=== PATIENT | female | born 1980 | race Caucasian/White ===

== ENCOUNTER 2016-06-08 14:44 | Inpatient (IN) | payer BC, OTHER ==
[~2016-06-08] VITALS: Ht 154.9 cm; Wt 56.7 kg
[2016-06-12] MEDS ORDERED: ACETAMINOPHEN 325 MG TABLET PO PRN (15:15)
[2016-06-12] MEDS ORDERED: LORAZEPAM 2 MG/1 ML VIAL IM PRN (15:15)
[2016-06-12] MEDS ORDERED: IV D5 1/2 NS 1000 ML 1,000 ML IV PRN (15:15)
[2016-06-12] MEDS ORDERED: ONDANSETRON ODT 4 MG TAB.RAPDIS SL PRN (15:15)
[2016-06-12] MEDS ORDERED: BUPRENORPHINE HCL 2 MG TAB.SUBL SL PRN (15:15)
[2016-06-12] MEDS ORDERED: DICYCLOMINE HCL 20 MG TABLET PO PRN (15:15)
[2016-06-12] MEDS ORDERED: MAG HYDROX/AL HYDROX/SIMETH 30 ML LIQUID UDC PO PRN (15:15)
[2016-06-12] MEDS ORDERED: DIAZEPAM 10 MG TABLET PO PRN (15:15)
[2016-06-12] MEDS ORDERED: MAGNESIUM HYDROXIDE 30 ML LIQUID UDC PO PRN (15:15)
[2016-06-12] MEDS ORDERED: DIAZEPAM 5 MG TABLET PO PRN (15:15)
[2016-06-12] MEDS ORDERED: LOPERAMIDE HCL 2 MG CAPSULE PO PRN ×2 (15:15)
--- NOTE | 2016-06-12 15:30 | NUR ---
Admission note Pt was admitted direct admit from home. Pt is admitted for opiate and benzo dependence. Pt placed on a regular diet. Pt is full code. Pt states that she has an allergy to lyrica, states that it makes her have SI and her hands swell. Pt was immediately placed on a 1:1 sitter for safety d/t unsteady gait d/t intoxication and dehydration/weakness. Pt states that she follows a regular diet at home, but that she is very picky about what she eats. Pt VS upon admission were: BP 114/55, HR 58, T:97.8 R: 16. SpO2: 98% on RA. Pt states that she has pain 09/26. Weight: 125 pounds, height: 5'1'' Pt states that she has a PMH of: fibromylagia, epilepsy, panic d/o, bipolar d/o, dissociative identity d/o, ADHD, insomnie and seasonal allergies. Pt states that she has fallen multiple times, and that last being last night. Pt has multiple small bruises on her arms and legs from the falls. Pt states that she had a seizure and fell last night and hit her head, pt states that she had a CT scan done and it was WNL. Pt was able to provide a UDS. All meds were entered into the med rec, Dr Hinkle is aware of her home medications. Pt states that she has not taken her anti-seizure meds in 6 months. Pt uses the following substances, was unable to provide a full clear history d/t her level of intoxication. Xanax- 4mg PO daily x 1 year, has been using xanax since the age of 14. last was 2mg PO 06/12/16 prior to admission. Soma- unknown tab amount, PO TID x 2 years, last 06/12/16 prior to admission Fentanyl patch- 50mcg patch was removed prior to admission, pt replaces Q72H,used for unknown amount of time. Diluadid- 8-16mg PO daily x unknown amount of time, last used 06/12/16. Pt states that she takes marinol to increase her appetite. Dr Hinkle saw pt and ordered IVF. Pt requested to go and smoke several times prior to allowing nurse to complete assessment, causing some delay in treatments. Dr Hinkle ordered for pt to start on 5 day subutex and 5 day valium taper on 08/13/16. Pt states that her PCP is Dr Maurice Kee and that she sees him regularly for the management of her health conditions. pt consented to the flu/pna vaccine. Pt states that she has recently been tested for HIV.
[2016-06-12 15:38] LABS: *URINE HCG, QUAL NEGATIVE (NEGATIVE)
[2016-06-12] MEDS ORDERED: TOPI200T16 PO (15:42)
[2016-06-12] MEDS ORDERED: [UNRECOGNIZED DRUG - OTHER] (15:42)
[2016-06-12] MEDS ORDERED: FLUV100C2 PO ×2 (15:42)
[2016-06-12] MEDS ORDERED: PROC5TAB PO (15:42)
[2016-06-12] MEDS ORDERED: TRAZ-147 PO (15:42)
[2016-06-12] MEDS ORDERED: GABA-534 PO (15:42)
[2016-06-12] MEDS ORDERED: MONT10TA25 PO (15:42)
[2016-06-12] MEDS ORDERED: DULO60CA63 PO (15:42)
[2016-06-12 15:45] LABS: *AMPHETAMINE, URINE NEGATIVE (NEGATIVE); *BARBITURATE, URINE NEGATIVE (NEGATIVE); *CANNABINOID, URINE NEGATIVE (NEGATIVE); *COCCAINE, URINE NEGATIVE (NEGATIVE); *OPIATE, URINE POSITIVE (NEGATIVE); *PHENCYCLIDINE SCREEN,URINE NEGATIVE (NEGATIVE)
[2016-06-12 16:00] VITALS: BP 125/74
[2016-06-12 16:43] LABS: HEMATOCRIT 39.5 % (37.0-47.0); HEMOGLOBIN 12.9 g/dL (12.0-16.0); MEAN CORPUSCULAR HEMOGLOBIN 29.8 uug (27.0-31.0); MEAN CORPUSCULAR HGB CONC 33 g/dL (32.0-37.0); MEAN CORPUSCULAR VOLUME 91.3 fL (81.0-99.0); PLATELET COUNT (AUTO) 179 K/uL (150-450); RED BLOOD CELL COUNT(AUTO) 4.32 MIL/uL (4.20-5.40); RED CELL DISTRIBUTION WIDTH 12.4 % (11.5-14.5); WHITE BLOOD COUNT (AUTO) 5.4 K/uL (4.0-11.2)
[2016-06-12 16:47] LABS: ETHANOL < 3 MG/DL (0-0)
[2016-06-12 16:51] LABS: ALANINE AMINOTRANSFERASE 20 U/L (14-59); ALBUMIN 3.8 g/dL (3.4-5.0); ALKALINE PHOSPHATASE 89 U/L (50-136); ASPARTATE AMINOTRANSFERASE 23 U/L (15-37); BILIRUBIN,TOTAL 0.3 mg/dL (0.2-1.0); CARBON DIOXIDE 31 mmol/L (21-32); CHLORIDE 101 mmol/L (98-107); CREATININE 0.8 mg/dL (0.6-1.3); GFR 82 mL/min (>60); GLUCOSE 107 mg/dL (74-106); MAGNESIUM 1.8 mg/dL (1.8-2.4); POTASSIUM 3.9 mmol/L (3.5-5.1); SODIUM SERUM 137 mmol/L (136-145); TOTAL PROTEIN, SERUM 6.9 g/dL (6.4-8.2); UREA NITROGEN, BLOOD 10 mg/dL (7-18)
[2016-06-12 16:58] LABS: HIV-1 p24 ANTIGEN NON REACTIVE (NONREACTIVE); HIV-1/2 ANTIBODY NON REACTIVE (NONREACTIVE)
[2016-06-12 17:12] LABS: THYROID STIMULATING HORMONE 1.624 mIU/mL (0.358-3.740)
--- NOTE | 2016-06-12 17:50 | NUR ---
IV insertion Pt is a very hard stick, IV placed by ER nurse in left leg, 22G. 3 attempts prior, pt tolerated well. Addendum: 06/12/16 at 2017 by MADDY FIGUEROA RN Pt requested to go smoke prior to administration of IVF
[2016-06-12 18:20] LABS: BAND % (MANUAL) 1 % (0-10); EOSINOPHILS % (MANUAL) 8 % (0-8); LYMPHOCYTES % (MANUAL) 39 % (20-40); MONOCYTES % (MANUAL) 6 % (2-10); NEUTROPHILS % (MANUAL) 46 % (42-75)
[2016-06-12 18:21] LABS: PLATELET ESTIMATE ADEQUATE
[2016-06-12] MEDS: DIAZEPAM 10 MG TABLET PO PRN (18:23)
[2016-06-12] MEDS: ONDANSETRON 4 MG/2 ML VIAL IV PRN (18:24)
[2016-06-12] MEDS: KETOROLAC TROMETHAMINE 30 MG INJ IM PRN (18:25)
--- NOTE | 2016-06-12 18:25 | NUR ---
PRN administration Pt c/o nausea, pain and has a CIWA of 15. PRN valium, toradol and zofran administered. IVF infused.
--- NOTE | 2016-06-12 19:15 | NUR ---
START OF SHIFT Received 35 year old female patient admitted on 06/12/16 benzodiazepine, opiate and soma dependency. Pt is full code with allergy to lyrica. She reports a PMHx of fibromyalgia, epilepsy, panic disorder, bipolar disorder, dissociative identity disorder, insomnia, ADHD, and seasonal allergies. She reports using Xanax 4 mg PO daily x1 year. Last dose was 06/12/16. Soma 350 mg every 4-6 hours daily for 10 years. Last dose 06/12/16. Fentanyl 50 mcg patch every 72 hours. And dilaudid 8-16 mg daily for 10 years. Last dose 06/12/16. She will be placed on 5 day Valium and 5 day Subutex taper to start 06/13/16. She is currently placed on 1:1 for unsteady gait and hx of seizure. Per endorsement, pt with peripheral IV fluids of D5 1/2 NS @ 120mL/hr on left lower leg 22 gauge. Intact and flushing well. No s/s of infection or infiltration noted. She received Zofran, Toradol, and Valium. Pt is alert and oriented x4, breathing is even and unlabored, safety measures in place. Will continue to monitor.
--- NOTE | 2016-06-12 19:25 | NUR ---
Reassessment Pt states that the medications were effective in relieving some of her s/s of withdrawal. Pt is requesting to rest at this time. director behavioral health to follow up with pt.
--- NOTE | 2016-06-12 19:30 | NUR ---
End of shift note Pt was admitted for opiate and benzo dependence. Pt has a PMH of fibromylagia, epilepsy, panic d/o, bipolar d/o, dissociative idenity d/o, ADHD, insomnia and seasonal allergies. Pt is allergic to lyrica. pt is full code. Pt is on a regular diet. Pt had PRN valium, zofran and toradol. IVF are infusing well. Pt continues on 1:1 for safety. All needs addressed at this time. Pt states that she is comfortable. SBAR report endorsed to oncoming shift. pt is scheduled to start 5 day subutex and 5 day valium taper on 06/13/16.
[2016-06-12 20:00] VITALS: BP 112/56
[2016-06-12] MEDS ORDERED: TRAZODONE 100 MG TABLET ONE (20:47)
[2016-06-12] MEDS ORDERED: DIAZEPAM 10 MG TABLET PO SCH (21:00)
[2016-06-12] MEDS: TRAZODONE 100 MG TABLET PO SCH (21:07)
[2016-06-12] MEDS: GABAPENTIN 300 MG CAPSULE PO SCH (21:07)
[2016-06-12] MEDS: PROMETHAZINE HCL 25 MG/1 ML VIAL IM PRN (21:40)
--- NOTE | 2016-06-12 21:40 | NUR ---
PRN PHENERGAN Pt complains of nausea with no episode of vomiting. PRN Phenergan administered as ordered. Breathing even and unlabored, safety measures in place. Will continue to monitor effectiveness.
--- NOTE | 2016-06-12 22:40 | NUR ---
PRN PHENERGAN REASSESSMENT PRN medication effective. Pt lying in bed with eyes closed noted to be asleep. Respirations 16, breathing even and unlabored. Safety measures in place. Will continue to monitor.
--- NOTE | 2016-06-13 | NUR ---
VITALS 0000 vitals refused by pt at beginning of shift. Pt stated, " please don't wake me up if I'm sleeping. I haven't been sleeping well." Pt lying in bed with eyes closed noted to be asleep. Respirations 16, breathing is even and unlabored. Safety measures in place. Will continue to monitor. Addendum: 06/13/16 at 0124 by ROSALIE ARCE RN Amended: Links added.
--- NOTE | 2016-06-13 04:00 | NUR ---
VITALS 0400 vitals refused by pt at beginning of shift. Pt stated, " please don't wake me up if I'm sleeping. I haven't been sleeping well." Pt lying in bed with eyes closed noted to be asleep. Respirations 16, breathing is even and unlabored. Safety measures in place. Will continue to monitor.
[2016-06-13] MEDS: KETOROLAC TROMETHAMINE 30 MG INJ IM PRN ×2 (05:16→13:04)
--- NOTE | 2016-06-13 05:16 | NUR ---
PRN TORADOL Pt complains of generalized body aches 11/27. PRN Toradol IM administered as ordered. Breathing even and unlabored, safety measures in place. Will continue to monitor.
[2016-06-13] MEDS: DIAZEPAM 10 MG TABLET PO PRN (05:33)
--- NOTE | 2016-06-13 05:33 | NUR ---
PRN BENTYL/VALIUM Pt reports abdominal spasms, anxiety, restlessness, chill and sweats. COWS: 7, CIWA:9. PRN Bentyl and PRN Valium administered as ordered. Breathing even and unlabored, safety measures in place. Will continue to monitor effectiveness.
--- NOTE | 2016-06-13 06:16 | NUR ---
PRN TORADOL REASSESSMENT PRN medication effective. Pt lying in bed with eyes closed noted to be asleep. Breathing even and unlabored, safety measures in place. Will continue to monitor.
--- NOTE | 2016-06-13 06:33 | NUR ---
PRN BENTYL/VALIUM REASSESSMENT PRN medications effective. Pt lying in bed with eyes closed noted to be asleep. Breathing even and unlabored, respirations 16. Pt safe with bed locked in lowest position, side rails up x2 and call light within reach. Will continue to monitor.
--- NOTE | 2016-06-13 07:23 | NUR ---
END OF SHIFT Pt is a 35 year old female patient admitted on 06/12/16 benzodiazepine, opiate and soma dependency. Pt is full code with allergy to lyrica. She reports a PMHx of fibromyalgia, epilepsy, panic disorder, bipolar disorder, dissociative identity disorder, insomnia, ADHD, and seasonal allergies. She will be placed on 5 day Valium and 5 day Subutex taper to start 06/13/16. She is currently placed on 1:1 for unsteady gait and hx of seizure. Pt with peripheral IV fluids of D5 1/2 NS @ 120mL/hr on left lower leg 22 gauge. Intact and flushing well. No s/s of infection or infiltration noted. She received PRN medications of phenerganToradol, Bentyl and Valium for CIWA:9. All PRN medications effective. She slept a total of 7 hrs, Intake: 1651 mL, Void: x2, BM:0, COWS:7, CIWA:9. Pt remains alert and oriented x4, breathing is even and unlabored, safety measures in place. Endorsed to AM Shift.
--- NOTE | 2016-06-13 07:45 | NUR ---
START OF SHIFT: REPORT RECEIVED FROM DIRECTOR OF HOUSING AND ENERGY SERVICES NURSE. PT IS A 35 YO FEMALE ADMITTED ON 06/12/16 FOR TAKING XANAX 4MG/DAY FOR 1 YEAR, SOMA UNKNOWN AMOUNT/TID FOR 2 YEARS, FENTANYL 50MCG PATCH Q72H, AND DILAUDID 8-16MG/DAY. PT IS TO START 5-DAY VALIUM AND SUBUTEX TAPERS TODAY. LAST DIRECTOR OF HOUSING AND ENERGY SERVICES COWS=7, CIWA=9. PT IS ON A 1:1 FOR UNSTEADY GAIT/SEIZURE. PT HAS A 22G IN LEFT LEG RUNNING D5 1/2NS AT 120 MLS/HR. PT REPORTS MED HX FIBROMYALGIA, EPILEPSY; PSYCH HX PANIC DO, BIPOLAR DO, DISSOCIATIVE IDENTITY DO, INSOMNIA. ALLERGY TO LYRICA, FULL CODE. . PT SLEPT 7 HOURS LAST NIGHT. PT IS CURRENTLY IN BED, NOTED TO BE LABILE, ANXIOUS, AGITATED, C/O GENERALIZED PAIN. ALL SAFETY PRECAUTIONS ARE IN PLACE.
[2016-06-13 08:00] VITALS: BP 86/38
[2016-06-13] MEDS: BUPRENORPHINE HCL 2 MG TAB.SUBL SL SCH ×4 (09:00→20:37)
[2016-06-13] MEDS: NICOTINE 14 MG/24HR PATCH TD SCH (09:00)
[2016-06-13] MEDS ORDERED: TUBERCULIN,PURIF.PROT.DERIV. 5 TU/0.1 ML TEST ID ONE (09:00)
--- NOTE | 2016-06-13 09:00 | NUR ---
NON-ADMIN: SUBUTEX AND NICOTINE PATCH SCHEDULED 09:00 DOSE OF SUBUTEX TAPER NOT ADMINISTERED D/T DECREASED BP OF 86/38. PT ENCOURAGED TO REMAIN ON IV FLUIDS. NICODERM PATCH NOT ADMINISTERED D/T PT'S REFUSAL TO NOT SMOKE WHILE TRANSDERMAL PATCH IS IN USE. VERBAL SMOKING CESSATION EDUCATION PROVIDED BUT PT CONTINUES TO REQUEST TO SMOKE. WILL CONTINUE TO MONITOR.
--- NOTE | 2016-06-13 09:00 | NUR ---
[facility] LATE: SCHEDULED 09:00 [facility] (HOME MED) ADMINISTERED LATE MEDICATION WAS NOT AVAILABLE FROM PHARMACY AT SCHEDULED TIME.
[2016-06-13] MEDS: GABAPENTIN 300 MG CAPSULE PO SCH ×3 (09:29→20:36)
[2016-06-13] MEDS: DIAZEPAM 10 MG TABLET PO SCH ×2 (09:29→13:05)
[2016-06-13] MEDS: MULTIVITAMINS,THERAPEUTIC TABLET PO SCH (09:29)
--- NOTE | 2016-06-13 09:31 | NUR ---
PPD ADMINISTERED: PPD ADMINISTERED IN RIGHT FOREARM. PT TOLERATED PROCEDURE WELL.
[2016-06-13 10:40] LABS: *AMPHETAMINE, URINE NEGATIVE (NEGATIVE); *BARBITURATE, URINE POSITIVE (NEGATIVE); *CANNABINOID, URINE NEGATIVE (NEGATIVE); *COCCAINE, URINE NEGATIVE (NEGATIVE); *OPIATE, URINE POSITIVE (NEGATIVE); *PHENCYCLIDINE SCREEN,URINE NEGATIVE (NEGATIVE)
[2016-06-13] MEDS: BACLOFEN 20 MG TABLET PO PRN (10:51)
[2016-06-13] MEDS: PROMETHAZINE HCL 25 MG/1 ML VIAL IM PRN ×2 (10:51→14:55)
--- NOTE | 2016-06-13 10:51 | NUR ---
PRN PHENERGAN AND PRN BACLOFEN: PT C/O SEVERE NAUSEA. ADMINISTERED PHENERGAN IM ORDERED. PT C/O MYALGIA. ADMINISTERED PRN BACLOFEN ORDERED. WILL CONTINUE TO MONITOR.
--- NOTE | 2016-06-13 11:55 | NUR ---
REASSESSMENT: PT IS IN BED WITH EYES CLOSED. RESPIRATIONS ARE EVEN AND UNLABORED. NO S/S OF ACUTE DISTRESS NOTED. PRN PHENERGAN AND PRN BACLOFEN EFFECTIVE. WILL CONTINUE TO MONITOR.
[2016-06-13 12:00] VITALS: BP 97/56
--- NOTE | 2016-06-13 13:00 | NUR ---
SUBUTEX LATE: SCHEDULED 13:00 TAPER DOSE OF SUBUTEX ADMINISTERED LATE PT'S BLOOD PRESSURE WAS TOO LOW. MD AWARE OF LOW BP, AND PT CONTINUES ON IV FLUIDS TO INCREASE BP.
--- NOTE | 2016-06-13 13:04 | NUR ---
PRN TORADOL: PT C/O SEVERE GENERALIZED PAIN; PT STATES "I HURT EVERYWHERE, IT EVEN HURTS TO MOVE." PT RATES PAIN 12/27. ADMINISTERED PRN TORADOL IM ORDERED. WILL CONTINUE TO MONITOR.
[2016-06-13] MEDS: PATIENT MAY USE OWN MED- MD OK PO SCH (13:05)
[2016-06-13] MEDS: ONDANSETRON 4 MG/2 ML VIAL IV PRN (13:58)
--- NOTE | 2016-06-13 13:58 | NUR ---
PRN ZOFRAN: PT C/O NAUSEA. ADMINISTERED ZOFRAN IV ORDERED. WILL CONTINUE TO MONITOR.
[2016-06-13] MEDS ORDERED: IV NORMAL SALINE 500 ML IV ONE (14:06)
--- NOTE | 2016-06-13 14:15 | NUR ---
REASSESSMENT: PT REPORTS THAT SHE IS STILL HAVING SEVERE PAIN. PT'S BLOOD PRESSURE TOO LOW FOR SUBUTEX ADMINISTRATION. PT TO CONTINUE TO IV FLUIDS TO INCREASE BP. WILL REASSESS BP Q 30 MIN FOR MEETING SUBUTEX BP PARAMETERS. Addendum: 06/13/16 at 1614 by DENISE KENDALL RN REASSESSMENT IS FOR MAIRA
[2016-06-13] MEDS: HYDROXYZINE PAMOATE 25 MG CAPSULE PO PRN (14:42)
--- NOTE | 2016-06-13 14:55 | NUR ---
REASSESSMENT AND PRN'S PHENERGAN AND VISTARIL: PT REPORTS THAT SHE IS STILL FEELING NAUSEOUS. PRN ZOFRAN NOT EFFECTIVE. ADMINISTERED PRN PHENERGAN IM ORDERED. PT C/O ANXIETY. ADMINISTERED PRN VISTARIL ORDERED. WILL CONTINUE TO MONITOR.
[2016-06-13] MEDS ORDERED: GABAPENTIN 300 MG CAPSULE PO SCH (15:00)
--- NOTE | 2016-06-13 15:55 | NUR ---
REASSESSMENT: PT REPORTS THAT SHE IS NO LONGER NAUSEOUS AND ANXIETY HAS REDUCED. PRN PHENERGAN AND PRN VISTARIL EFFECTIVE. WILL CONTINUE TO MONITOR.
[2016-06-13 16:00] VITALS: BP 90/51
[2016-06-13] MEDS: DIVALPROEX 250 MG TABLET.DR PO SCH ×2 (16:41→20:46)
[2016-06-13] MEDS: DULOXETINE 60 MG CAPSULE.DR PO SCH (16:41)
[2016-06-13] MEDS ORDERED: TRAZODONE 100 MG TABLET PO SCH ×2 (18:00)
--- NOTE | 2016-06-13 19:22 | NUR ---
END OF SHIFT NOTE: PT IS A 35 YO FEMALE ADMITTED ON 06/12/16 FOR TAKING XANAX 4MG/DAY FOR 1 YEAR, SOMA UNKNOWN AMOUNT/TID FOR 2 YEARS, FENTANYL 50MCG PATCH Q72H, AND DILAUDID 8-16MG/DAY. PT IS ON DAY 1 OF 5-DAY VALIUM AND SUBUTEX TAPERS. PT IS ON A 1:1 FOR UNSTEADY GAIT/SEIZURE. PT HAS A 22G IN LEFT LEG RUNNING D5 1/2NS AT 120 MLS/HR. 500ML NS BOLUS GIVEN THIS SHIFT TO INCREASE BP. PT REPORTS MED HX FIBROMYALGIA, EPILEPSY; PSYCH HX PANIC DO, BIPOLAR DO, DISSOCIATIVE IDENTITY DO, INSOMNIA. ALLERGY TO LYRICA, FULL CODE. 09:00 SCHEDULED DOSE OF SUBUTEX UNABLE TO BE ADMINISTERED D/T BP 86/38: PRN MEDICATIONS ATTEMPTED TO MANAGE WITHDRAWAL SYMPTOMS (PRN PHENERGAN X2, PRN TORADOL, PRN BACLOFEN, PRN VISTARIL, PRN ZOFRAN) BUT COWS (9, 13) AND CIWA (10, 11) SCORES REMAINED ELEVATED UNTIL BP WAS HIGH ENOUGH FOR SUBUTEX ADMINISTRATION AT 14:50, WHEN COWS DECREASED TO 3, CIWA=2. PPD WAS ADMINISTERED THIS SHIFT IN RIGHT FOREARM. PT ALSO REFUSED NICOTINE TD PATCH. PRIOR TO HANDOFF, LAST COWS=3, CIWA=2. PT CONSUMED 0% BREAKFAST, 25% LUNCH, AND 0% DINNER. INTAKE 375ML ORAL AND 500ML IV, URINE X2, BM X0.
--- NOTE | 2016-06-13 19:35 | NUR ---
START OF SHIFT NOTE Pt is 35 y o female, admitted on 06/12/16 for Xanax (4 mg daily for 1 yr), soma (unknown amount daily for 2 yrs), fentanyl (50 mcg before admission), and dilaudid (8-16 mg daily). Pt placed on 5 day Valium, 5 day Subutex taper started 06/13/16. Pt asleep, awakened by touch. Pt oriented to name, place, disoriented to date by 3 days, provided reorientation. Pt noted with moderate sweating, reports chills, body aches 6/10, stomach cramps, anxiety. No tremors noted. AURY 107/60, HR 68. Skin intact. PIV 22 g to left leg, site intact, patent, without edema or erythema; infusing D5 1/2NS at 120 ml/hr. Lung sounds clear, heart rate regular. Pt denies n/v, bowel sounds active x 4. Pt denied urinary difficulties. PMH of fibromyalgia, epilepsy, panic disorder, bipolar, dissociative identity, ADH, insomnia, allergies. Pt allergic to Lyrica. Full code, regular diet. Fall and seizure precautions in place. Pt has unsteady gait, is o 1:1 observation for safety. Pt is on fall and seizure precautions. CAll light within reach, side rails up x 2, bed locked in lowest position. Will continue with plan of care
[2016-06-13 20:00] VITALS: BP 107/60
[2016-06-13] MEDS: TRAZODONE 100 MG TABLET PO SCH (20:36)
[2016-06-13] MEDS: IV D5 1/2 NS 1000 ML 1,000 ML IV PRN (20:44)
[2016-06-13] MEDS ORDERED: DIAZEPAM 10 MG TABLET PO SCH (21:00)
[2016-06-14] VITALS: BP 89/48
[2016-06-14] MEDS: IBUPROFEN 600 MG TABLET PO PRN (02:16)
[2016-06-14] MEDS: BACLOFEN 20 MG TABLET PO PRN ×2 (02:16→10:18)
[2016-06-14] MEDS: diphenhydrAMINE 50 MG CAPSULE PO PRN (02:18)
--- NOTE | 2016-06-14 02:18 | NUR ---
PRN MEDICATION: BACLOFEN, MOTRIN, BENADRYL Pt awakened, c/o body aches 6/10, spasms. Administered Baclofen and Motrin. Pt reported insomnia, given Benadryl prn as ordered. Safety measures in place, will continue to monitor
--- NOTE | 2016-06-14 03:18 | NUR ---
REASSESSMENT Pt sleeping soundly, RR unlabored. Will cont to monitor
[2016-06-14 04:00] VITALS: BP 87/53
[2016-06-14] MEDS: PROMETHAZINE HCL 25 MG/1 ML VIAL IM PRN ×2 (06:01→18:00)
[2016-06-14] MEDS: KETOROLAC TROMETHAMINE 30 MG INJ IM PRN ×2 (06:13→18:00)
--- NOTE | 2016-06-14 06:15 | NUR ---
PRN TORADOL AND PHENERGAN Pt awake, c/o body ache 9/10 and nausea. Administered prn Phenergan an prn Toradol as order
--- NOTE | 2016-06-14 07:15 | NUR ---
MADHU ROYAL Pt observed in room on bed with eyes closed resting, but easily arousable to name. No distress noted at this time.
--- NOTE | 2016-06-14 07:46 | NUR ---
START OF SHIFT Pt 35 y/o female admitted for benzo and opiate dependence. Pt received in room on bed with eyes closed resting, but easily arousable to name. Pt alert and oriented to name, place, and time. Perrla. Skin warm and slightly moist to touch. Respirations even and unlabored. Peripheral IV 22g on left leg intact and in place, with no redness or infiltration noted and infusing D5 1/2NS @120mL / hr and is tolerating well. Pt with sitter 1:1 for safety. It was reported that pt slept for 8 hours last night. Bed on lowest position with side rails x2 up for safety. Call light within reach. No distress noted at this time.
--- NOTE | 2016-06-14 07:53 | NUR ---
END OF SHIFT NOTE Pt is 35 y o female, admitted on 06/12/16 for Xanax (4 mg daily for 1 yr), soma (unknown amount daily for 2 yrs), fentanyl (50 mcg before admission), and dilaudid (8-16 mg daily). Pt is on day 2 of 5 day Valium, 5 day Subutex taper started 06/13/16. Pt had withdrawal s/s of body aches, chills, sweats, yawning, anxiety, nausea, stomach cramps. Pt was administered al scheduled taper medications. COWS scores ranged from 7 to 4, last COWS = 4; CIWA ranged 6 to 2, last CIWA =2. Noted pt had BP trending SBP 87-107, DBP 48-60. Pt received prn medications as documented in separate entries. Prns were effective for discomfort s/s. Currently pt is asleep with eyes closed, RR unlabored IV to L leg intact and patent, without swelling or redness, infusing D5 1/2 NS. 1:1 sitter at bedsite. PMH of fibromyalgia, epilepsy, panic disorder, bipolar, dissociative identity, ADH, insomnia, allergies. Pt allergic to Lyrica. Full code, regular diet. Fall and seizure precautions in place. Pt has unsteady gait, is o 1:1 observation for safety. Report endorsed to day shift
[2016-06-14 08:00] VITALS: BP 106/62
[2016-06-14] MEDS: IV D5 1/2 NS 1000 ML 1,000 ML IV PRN (08:11)
[2016-06-14] MEDS: NICOTINE 14 MG/24HR PATCH TD SCH (09:00)
[2016-06-14] MEDS ORDERED: DIAZEPAM 10 MG TABLET PO SCH (09:00)
[2016-06-14] MEDS: DIAZEPAM 5 MG TABLET PO SCH ×4 (09:59→20:14)
[2016-06-14] MEDS: BUPRENORPHINE HCL 2 MG TAB.SUBL SL SCH ×3 (10:00→20:20)
[2016-06-14] MEDS: GABAPENTIN 300 MG CAPSULE PO SCH ×3 (10:01→20:13)
[2016-06-14] MEDS: MULTIVITAMINS,THERAPEUTIC TABLET PO SCH (10:01)
[2016-06-14] MEDS: DULOXETINE 60 MG CAPSULE.DR PO SCH (10:01)
[2016-06-14] MEDS: DIVALPROEX 250 MG TABLET.DR PO SCH ×2 (10:18→20:14)
[2016-06-14] MEDS: PATIENT MAY USE OWN MED- MD OK PO SCH (10:18)
[2016-06-14] MEDS: IV NS 1000 ML 1,000 ML IV SCH (10:19)
[2016-06-14] MEDS ORDERED: KETOROLAC TROMETHAMINE 30 MG INJ IM ONE (10:30)
[2016-06-14] MEDS: MIRALAX 17 GM POWD.PACK PO PRN (10:51)
--- NOTE | 2016-06-14 10:51 | NUR ---
PRN Pt with c/o constipation. Miralax oral prn per MD order offered, at first accepted, but after it was made, pt refused.
[2016-06-14 12:00] VITALS: BP 102/61
[2016-06-14] MEDS: LIDOCAINE 5% PATCH TD SCH (13:38)
[2016-06-14 14:12] LABS: HCV AB <0.1 s/co ratio (0.0-0.9); HEPATITIS B CORE AB, IgM Negative (Negative); HEPATITIS B SURFACE AG Negative (Negative)
[2016-06-14] MEDS: DICYCLOMINE HCL 20 MG TABLET PO SCH ×2 (15:36→20:13)
[2016-06-14] MEDS: BACLOFEN 20 MG TABLET PO SCH ×2 (15:36→20:13)
[2016-06-14] MEDS: HYDROXYZINE PAMOATE 25 MG CAPSULE PO PRN (15:39)
--- NOTE | 2016-06-14 15:39 | NUR ---
PRN Pt stated feels anxious and restless. Vistaril po prn per MD order given and tolerated well.
[2016-06-14 16:00] VITALS: BP 109/54
--- NOTE | 2016-06-14 16:39 | NUR ---
PRN jarredal Pt observed in bed with eyes closed resting, but easily arousable to name. No distress noted at this time.
--- NOTE | 2016-06-14 17:45 | NUR ---
IV 500 of 1000mL of NS left in bag. Notified pharmacy.
--- NOTE | 2016-06-14 19:17 | NUR ---
END OF SHIFT Pt 35 y/o female admitted for benzo and opiate dependence. Pt alert and oriented to name, place, and time. Perrla. Skin warm and slightly moist to touch. Respirations even and unlabored. Peripheral IV 22g on left leg intact and in place, with no redness or infiltration noted and infusing NS @125mL / hr and is tolerating well. Pt with sitter 1:1 for safety. Pt medication compliant and tolerated well. No ASe noted at this time. Bed on lowest position with side rails x2 up for safety. Call light within reach. No distress noted at this time.
[2016-06-14 20:00] VITALS: BP 129/67
--- NOTE | 2016-06-14 20:00 | NUR ---
Start of Shift Pt is a 35 year old female admitted on 06/12/2016 for Benzo/Opiate dependence, placed on 5 day Valium and 5 day Subutex taper. Pt is allergic to pregabalin, fall/seizure precautions, regular diet and full code. Pt is on 1:1 observation d/t unsteady gait - safety. PMH: Fibromyalgia, epilepsy, panic d/o, bipolar d/o, dissociative identity d/o, ADH, insomnia and allergies (seasonal). Peripheral IV 22g on left leg intact and in place, no redness or infiltration noted and infusing NS @125mL / hr, pt tolerating well. Upon assessment, pt reports anxiety, noted with moderate sweaty, reports chills/body/joint aches. respirations even and unlabored, denies SOB/chest pain, skin sweaty/clammy, bowel sounds active x4, abdomen soft. BP 129/67, pulse 83, respirations 16 , SpO2 99%, temp 97.5. Will administered scheduled medications. Safety measures in place, call light within reach, side rails up x2, bed locked and in low position. Will continue to monitor.
[2016-06-14] MEDS: TRAZODONE 100 MG TABLET PO SCH (20:14)
[2016-06-15] VITALS: BP 134/79
--- NOTE | 2016-06-15 | NUR ---
Vital Signs BP 134/79, pulse 67, respirations 16, SpO2 97%, temp 97.9, CIWA/COWS deferred d/t pt sleeping, to asses while awake as ordered. Respirations even and unlabored, no s/s of distress noted. Safety measures in place, call light within reach, side rails up x2, bed locked and in low position. Will continue to monitor.
[2016-06-15] MEDS: KETOROLAC TROMETHAMINE 30 MG INJ IM PRN ×4 (00:47→22:51)
--- NOTE | 2016-06-15 00:47 | NUR ---
PRN Administration Upon awakening, pt reported pain 10/10 in right leg, requested relief. Pt also reported anxiety. Toradol Inj 30ml/1ml PRN administered, tolerated well. Vistaril 50mg PRN administered. Safety measures in place, sitter at bed side, call light within reach, side rails up x2, bed locked and in low position. Will continue to monitor.
[2016-06-15] MEDS: HYDROXYZINE PAMOATE 25 MG CAPSULE PO PRN ×2 (01:03→11:59)
[2016-06-15] MEDS: IV NS 1000 ML 1,000 ML IV SCH ×3 (01:16→21:40)
--- NOTE | 2016-06-15 01:16 | NUR ---
IVF New bag of NS started - Infusing NS @125mL / hr. Peripheral IV 22g on left leg intact and in place, no redness or infiltration noted. Safety measures in place, will continue to monitor.
[2016-06-15] MEDS: PROMETHAZINE HCL 25 MG/1 ML VIAL IM PRN ×3 (02:25→16:06)
--- NOTE | 2016-06-15 02:25 | NUR ---
PRN Reassessment/PRN Administration Pt reports pain is subsiding rated 3-4/10. Pt reported nausea, requested relief. Phenergan 25mg/1ml PRN administered. Safety measures in place, sitter at bed side, call light within reach, side rails up x2, bed locked and in low position. Will continue to monitor.
--- NOTE | 2016-06-15 03:25 | NUR ---
PRN Reassessment Pt reports feeling no longer nauseated, Phenergan 25mg/1mg effective. Needs met. Safety measures in place, Will continue to monitor.
[2016-06-15] MEDS: CLONIDINE HCL 0.1 MG TABLET PO PRN ×3 (03:59→23:51)
[2016-06-15 04:00] VITALS: BP 133/69
--- NOTE | 2016-06-15 04:00 | NUR ---
Vital Signs/PRN Administration BP 133/69, pulse 90, respirations 17, Spo2 98%, temp 98. Pt is emotional, is crying, stated, "I am very anxious, I just can't sleep because I keep thinking about everything!" Clonidine 0.1mg PRN administered. Safety measures in place, sitter at bedside, call light within reach, side rails up x2, bed locked and in low position. Will continue to monitor.
--- NOTE | 2016-06-15 05:00 | NUR ---
PRN Reassessment Upon reassessment of Clonidine 0.1mg PRN, pt is sleeping, no s/s of distress noted, respirations even and unlabored, medication effective. Safety measures in place, sitter at bedside, side rails up x2, bed locked and in low position. Will continue to monitor.
--- NOTE | 2016-06-15 07:00 | NUR ---
End of Shift Pt is a 35 year old female admitted on 06/12/2016 for Benzo/Opiate dependence, placed on 5 day Valium and 5 day Subutex taper. Pt is allergic to pregabalin, fall/seizure precuations, regular diet and full code. Pt is on 1:1 observation d/t unsteady gait - safety. PMH: Fibromyalgia, epilepsy, panic d/o, bipolar d/o, dissociative identity d/o, ADH, insomnia and allergies (seasonal). During shift pt presented with fatigue, chills/aches over body and joints, skin noted with moderate sweat, gait remains unsteady. Scheduled taper medications administered, COWS 5 and CIWA 4. At 0047, pt reported anxiety and 10/10 pain in right leg, Toradol 30mg/1ml injection PRN and Vistaril 50mg PRN administered. Peripheral IV 22g on left leg intact and in place, no redness or infiltration noted and infusing NS @125mL / hr, pt tolerating well - new bag hung at 0116. At 0225, Phenergan 25mg/1ml administered d/t nausea, effective as reported per pt. Clonidine 0.1mg PRN administered d/t pt reports of anxiety, as mentioned in separate note. VS stable, Pt slept for 4 hours, intake of 810 ml PO and voids x2. Safety measures in place, call light within reach, side rails up x2, bed locked and in low position. Endorsed to day shift nurse.
[2016-06-15 08:00] VITALS: BP 120/64
--- NOTE | 2016-06-15 08:00 | NUR ---
START OF SHIFT Pt 35 y/o female admitted for benzo and opiate dependence. Pt received in room on bed with eyes closed resting, but easily arousable to name. Pt alert and oriented to name, place, and time. Perrla. Skin warm and slightly moist to touch. Respirations even and unlabored. Peripheral IV 22g on left leg intact and in place, with no redness or infiltration noted and infusing NS @125mL / hr and is tolerating well. Pt with sitter 1:1 for safety. Pt observed irritable this morning, raising voice, at times yelling at staff. It was reported that pt slept for 4 hours last night. Bed on lowest position with side rails x2 up for safety. Call light within reach. No distress noted at this time.
[2016-06-15] MEDS: DICYCLOMINE HCL 20 MG TABLET PO SCH ×3 (08:20→21:38)
[2016-06-15] MEDS: DIAZEPAM 5 MG TABLET PO SCH ×3 (08:20→21:39)
[2016-06-15] MEDS: BACLOFEN 20 MG TABLET PO SCH ×3 (08:20→21:38)
[2016-06-15] MEDS: GABAPENTIN 300 MG CAPSULE PO SCH ×2 (08:20→15:49)
[2016-06-15] MEDS: MULTIVITAMINS,THERAPEUTIC TABLET PO SCH (08:20)
[2016-06-15] MEDS: DULOXETINE 60 MG CAPSULE.DR PO SCH (08:20)
[2016-06-15] MEDS: PATIENT MAY USE OWN MED- MD OK PO SCH (08:20)
[2016-06-15] MEDS: DIVALPROEX 250 MG TABLET.DR PO SCH ×2 (08:21→21:39)
--- NOTE | 2016-06-15 08:21 | NUR ---
PRN Pt stated she feels nauseated. Phenargam im prn per MD order given and tolerated well.
[2016-06-15] MEDS: LIDOCAINE 5% PATCH TD SCH (08:29)
--- NOTE | 2016-06-15 08:29 | NUR ---
PRN Pt with c/o generalized pain 6/10 aching. Toradol im prn per MD order given and tolerated well.
--- NOTE | 2016-06-15 08:30 | NUR ---
IV Pt requested to have IV fluids disconnected to go out to the patio.
[2016-06-15] MEDS ORDERED: DIAZEPAM 5 MG TABLET PO SCH (09:00)
[2016-06-15] MEDS: NICOTINE 14 MG/24HR PATCH TD SCH (09:00)
[2016-06-15] MEDS ORDERED: BUPRENORPHINE HCL 2 MG TAB.SUBL SL SCH (09:00)
--- NOTE | 2016-06-15 09:21 | NUR ---
MADHU ROYAL Pt observed in dining room sitting watching television.
--- NOTE | 2016-06-15 09:29 | NUR ---
MADHU ROYAL Pt observed in dining room sitting watching television.
[2016-06-15 12:00] VITALS: BP 137/80
--- NOTE | 2016-06-15 12:06 | NUR ---
PRN Pt agitated and does not respond to limit setting. Hard to redirect. Pt yelling in room. Catapres po prn per MD order and vistaril po prn per MD order given and tolerated well. Pt refused to have IV continued at this time. Pt also refused to have PNA and influenza vaccine at this time.
--- NOTE | 2016-06-15 12:07 | NUR ---
IV Pt requested to have IV fluids disconnected to go to the patio.
--- NOTE | 2016-06-15 12:45 | NUR ---
IV NS still with 500mL of 1000mL left in bag.
[2016-06-15] MEDS ORDERED: INFLUENZA VACCINE 0.5 ML DISP.SYRIN IM ONE (13:00)
[2016-06-15] MEDS ORDERED: PNEUMOCOCCAL 23-VAL P-SAC VAC 0.5 ML VIAL IM ONE (13:00)
[2016-06-15] MEDS: BUPRENORPHINE HCL 2 MG TAB.SUBL SL SCH ×2 (15:50→21:39)
[2016-06-15 16:00] VITALS: BP 126/76
--- NOTE | 2016-06-15 16:06 | NUR ---
PRN Pt with c/o nausea. Phenergan IM prn per MD order given and tolerated well.
--- NOTE | 2016-06-15 16:07 | NUR ---
IV Pt requested to have IV fluids disconnected because pt wants to go out to the patio.
--- NOTE | 2016-06-15 16:07 | NUR ---
PRN Pt with c/o pain aching generalized 11/27. Toradol IM prn per MD order given and tolerated well.
--- NOTE | 2016-06-15 17:06 | NUR ---
MADHU ROYAL Pt observed up on wheelchair in patio. No distress noted at this time.
--- NOTE | 2016-06-15 17:07 | NUR ---
MADHU ROYAL Pt observed up on wheelchair in patio. No distress noted at this time.
--- NOTE | 2016-06-15 18:27 | NUR ---
IV Pt requested to have IV fluids disconnected because pt wants to go out to the patio.
--- NOTE | 2016-06-15 18:37 | NUR ---
END OF SHIFT Pt 35 y/o female admitted for benzo and opiate dependence. Pt alert and oriented to name, place, and time. Perrla. Skin warm and slightly moist to touch. Respirations even and unlabored. Peripheral IV 22g on left leg intact and in place, with no redness or infiltration noted and infusing NS @125mL / hr and is tolerating well. Pt partially compliant with IV therapy, requesting to have the IV fluids disconnected multiple times throughout the day to go to the patio. Pt with sitter 1:1 for safety. Pt medication compliant and tolerated well. No ASe noted at this time. Bed on lowest position with side rails x2 up for safety. Call light within reach. No distress noted at this time.
[2016-06-15 20:00] VITALS: BP 134/66
--- NOTE | 2016-06-15 20:00 | NUR ---
Start of Shift Pt is a 35 year old female admitted on 06/12/2016 for Benzo/Opiate dependence, placed on 5 day Valium and 5 day Subutex taper. Pt is allergic to pregabalin, fall/seizure precautions, regular diet and full code. Pt is on 1:1 observation d/t unsteady gait - safety. PMH: Fibromyalgia, epilepsy, panic d/o, bipolar d/o, dissociative identity d/o, ADH, insomnia and allergies (seasonal). Peripheral IV 22g on left leg intact and in place, no redness or infiltration noted and infusing NS @125mL / hr, pt tolerating well. Upon assessment, pt reports anxiety, reports body/joint aches. respirations even and unlabored, denies SOB/chest pain, skin sweaty/clammy, bowel sounds active x4, abdomen soft. BP 134/66, pulse 66, respirations 16 , SpO2 100%, temp 98.2. Will administered scheduled medications. Safety measures in place, call light within reach, side rails up x2, bed locked and in low position. Will continue to monitor.
[2016-06-15] MEDS ORDERED: GABAPENTIN 300 MG CAPSULE PO SCH (21:00)
[2016-06-15] MEDS: TRAZODONE 100 MG TABLET PO SCH (21:38)
--- NOTE | 2016-06-15 22:51 | NUR ---
PRN Administration Pt reported body aches/pain rated 10/10, requested relief. Toradol Inj 30ml/1ml PRN administered, tolerated well. Safety measures in place, sitter at bed side, call light within reach, side rails up x2, bed locked and in low position. Will continue to monitor.
[2016-06-15] MEDS: ONDANSETRON 4 MG/2 ML VIAL IV PRN (23:51)
--- NOTE | 2016-06-15 23:51 | NUR ---
PRN Reassessment/Administration Pt is crying, in emotional distress, skin noted to be clammy, tremors noted, reports feelings of anxious. Pt also reports feeling nauseated, no emesis present. Clonidine 0.1mg PRN administered as ordered. Zofran 4mg/2ml PRN administered as ordered. Safety measures in place, sitter at bedside, call light within reach, side rails up x2, bed locked and in low position. Will continue to monitor.
[2016-06-16] VITALS: BP 123/67
--- NOTE | 2016-06-16 | NUR ---
Vital Signs BP 123/67, pulse 87, respirations 16, Spo2 98%, temp 98.3. COWS 4, CIWA [address], sitter at bedside, call light within reach, side rails up x2, bed locked and in low position. Will continue to monitor.
--- NOTE | 2016-06-16 00:51 | NUR ---
PRN Reassessment Pt is sleeping, no s/s of distress noted, respirations even and unlabored. Medication effective. Safety measures in place, call light within reach, side rails up x2, bed locked and in low position. Will continue to monitor
[2016-06-16 04:00] VITALS: BP 131/75
--- NOTE | 2016-06-16 04:00 | NUR ---
Vital Signs BP 131/75, pulse 65, respirations 18, SpO2 97%, temp 97.8, CIWA/COWS deferred d/t pt sleeping, to asses while awake as ordered. Respirations even and unlabored, no s/s of distress noted. Safety measures in place, call light within reach, side rails up x2, bed locked and in low position. Will continue to monitor.
[2016-06-16] MEDS: HYDROXYZINE PAMOATE 25 MG CAPSULE PO PRN ×2 (04:43→16:52)
--- NOTE | 2016-06-16 04:43 | NUR ---
PRN Administration Upon awakening, pt is emotional -crying, reports feeling anxious d/t having a "bad dream". Vistaril 50mg PRN administered. Safety measures in place, call light within reach, side rails up x2, bed locked and in low position. Will continue to monitor.
[2016-06-16] MEDS: IV NS 1000 ML 1,000 ML IV SCH ×3 (05:15→18:00)
--- NOTE | 2016-06-16 05:15 | NUR ---
IVF New bag of NS started at 0515. Infusing NS @125mL / hr. Peripheral IV 22g on left leg intact and in place, no redness or infiltration noted. Safety measures in place, will continue to monitor.
[2016-06-16] MEDS: KETOROLAC TROMETHAMINE 30 MG INJ IM PRN ×3 (05:27→18:37)
--- NOTE | 2016-06-16 05:27 | NUR ---
PRN Reassessment/PRN Administered. Pt reported Vistaril 50mg PRN not effective. Pt reports body aches rated 10/10. Pt is crying and states, "I am hurting all over!" Toradol 30mg/1ml PRN administered. Safety measures in place, sitter at bedside. Will continue to monitor.
--- NOTE | 2016-06-16 07:00 | NUR ---
End of Shift Pt is a 35 year old female admitted on 06/12/2016 for Benzo/Opiate dependence, placed on 5 day Valium and 5 day Subutex taper. Pt is allergic to pregabalin, fall/seizure precautions, regular diet and full code. Pt is on 1:1 observation d/t unsteady gait - safety. PMH: Fibromyalgia, epilepsy, panic d/o, bipolar d/o, dissociative identity d/o, ADH, insomnia and allergies (seasonal). Peripheral IV 22g on left leg intact and in place, no redness or infiltration noted and infusing NS @125mL / hr, pt tolerating well. During shift, pt presented of anxiety, pt was emotional crying and reported body aches rated 10/10. Scheduled taper medications administered, along with Toradol inj x2, clonidine 0.1mg PRN, Zofran 4mg/2mg IV, Vistaril 50mg PRN. 2 bags of NS @125ml/hr hung, first bag at 2140 and second bag at 0515. Withdrawal assessment of COWS 4, CIWA 4. pt slept for 4 hours, intake of 651 ml Po and voids x3. Safety measures in place, call light within reach, side rails up x2, bed locked and in low position. Endorsed to day shift nurse.
--- NOTE | 2016-06-16 07:15 | NUR ---
Start of shift note Pt was admitted for opiate and benzo dependence. Pt has a PMH of fibromylagia, epilepsy, panic d/o, bipolar d/o, dissociative idenity d/o, ADHD, insomnia and seasonal allergies. Pt is allergic to lyrica. pt is full code. Pt is on a regular diet. Pt is on a 1:1, sitter at bedside for safety. Pt IVF infusing at 125ml/hr. No signs of redness at IV site. Pt is sleeping well, stated she does not need anything at this time. Pt is on a subutex and valium taper for her w/d s/s. Pt had multiple PRN medications over night. Will continue to monitor pt. All needs addressed at this time.
[2016-06-16 08:00] VITALS: BP 126/66
[2016-06-16] MEDS: NICOTINE 14 MG/24HR PATCH TD SCH (09:00)
[2016-06-16] MEDS ORDERED: DIAZEPAM 5 MG TABLET PO SCH (09:00)
[2016-06-16] MEDS: DICYCLOMINE HCL 20 MG TABLET PO SCH ×3 (09:20→21:32)
[2016-06-16] MEDS: MULTIVITAMINS,THERAPEUTIC TABLET PO SCH (09:20)
[2016-06-16] MEDS: IBUPROFEN 600 MG TABLET PO PRN ×2 (09:20→21:32)
[2016-06-16] MEDS: DULOXETINE 60 MG CAPSULE.DR PO SCH (09:20)
[2016-06-16] MEDS: GABAPENTIN 300 MG CAPSULE PO SCH ×3 (09:21→21:31)
[2016-06-16] MEDS: BACLOFEN 20 MG TABLET PO SCH ×3 (09:21→21:32)
[2016-06-16] MEDS: BUPRENORPHINE HCL 2 MG TAB.SUBL SL SCH ×3 (09:21→21:32)
[2016-06-16] MEDS: DIAZEPAM 5 MG TABLET PO SCH ×2 (09:21→21:32)
[2016-06-16] MEDS: PATIENT MAY USE OWN MED- MD OK PO SCH (09:22)
[2016-06-16] MEDS: DIVALPROEX 250 MG TABLET.DR PO SCH (09:22)
[2016-06-16] MEDS: LIDOCAINE 5% PATCH TD SCH (09:22)
[2016-06-16] MEDS: CLONIDINE HCL 0.1 MG TABLET PO PRN (09:29)
[2016-06-16] MEDS: ONDANSETRON 4 MG/2 ML VIAL IV PRN (09:29)
--- NOTE | 2016-06-16 09:30 | NUR ---
Reassessment Pt states that her nausea was relieved and pt states that her anxiety was reduced. Will continue to monitor pt. All needs addressed at this time. 1:1 remains at bedside. Pt states that her pain has improved slightly, unwilling to state a number.
--- NOTE | 2016-06-16 09:30 | NUR ---
PRN administration Pt c/o nausea, pain and anxiety. Administered PRN zofran IVP, motrin and clonidine. Pt also states that she hasn't had a BM in "days". Pt abdomen is hard. Pt refused MOM, pt requested enema. Dr Hinkle notified. Pt has a COWS of 9 and CIWA of 13, MD aware. NNO at this time.
[2016-06-16] MEDS ORDERED: DIAZEPAM 5 MG TABLET PO ONE (10:45)
[2016-06-16] MEDS ORDERED: MAGNESIUM CITRATE 296 ML BOTTLE PO PRN (10:45)
[2016-06-16] MEDS ORDERED: BISACODYL 10 MG SUPP.RECT RC PRN (10:45)
[2016-06-16] MEDS ORDERED: BUPRENORPHINE HCL 2 MG TAB.SUBL SL ONE (10:45)
[2016-06-16] MEDS ORDERED: BISACODYL 5 MG TABLET.DR PO PRN (10:45)
[2016-06-16] MEDS: MIRALAX 17 GM POWD.PACK PO PRN (11:17)
[2016-06-16] MEDS: DOCUSATE SODIUM 250 MG CAPSULE PO SCH (11:18)
[2016-06-16] MEDS: FLEET ENEMA 133 ML BOTTLE RC PRN (11:18)
--- NOTE | 2016-06-16 11:45 | NUR ---
PRN Administration Pt states that she has generalized body aches of 8/10. Administered toradol PRN per MD order. Will continue to monitor pt. All needs addressed at this time.
[2016-06-16 12:00] VITALS: BP 130/78
--- NOTE | 2016-06-16 14:00 | NUR ---
Noncompliance Pt noted to not have IVF infusing most of the shift so far, PO fluids encouraged. Pt states that she just wants to take a break from IVF d/t her anxiety at this time. Pt IV site noted to be more than 72 hours old, Dr Hinkle stated ok to keep at this time. No s/s of infection noted. Flushes easily. Will continue to monitor pt. Pt drinking adequate amounts of PO fluids at this time.
[2016-06-16] MEDS: CLONIDINE HCL 0.1 MG TABLET PO SCH ×2 (14:26→21:33)
[2016-06-16 16:00] VITALS: BP 127/97
--- NOTE | 2016-06-16 16:52 | NUR ---
PRN administration Pt c/o pain and anxiety. Administered tylenol and vistaril. Pt states pain is 9/10, pt agreed to wait an hour for her toradol but wants the tylenol now. Will continue to monitor pt.
[2016-06-16] MEDS ORDERED: MISCELLANEOUS MED XX PRN (17:00)
--- NOTE | 2016-06-16 17:52 | NUR ---
Reassessment Pt states she does not want to return to the unit from the patio at this time. Will continue to monitor pt.
--- NOTE | 2016-06-16 18:37 | NUR ---
PRN administration Pt states that she has pain 9/10. PRN toradol administered. Will continue to monitor pt.
--- NOTE | 2016-06-16 18:45 | NUR ---
MD communication Pt states that she has a migraine unrelieved by other medications. Dr Hinkle notified. ordered imetrix 25mg PO x 1 now. orders entered, unable to enter orders.
--- NOTE | 2016-06-16 19:25 | NUR ---
End of shift note Pt was admitted for opiate and benzo dependence. Pt has a PMH of fibromylagia, epilepsy, panic d/o, bipolar d/o, dissociative idenity d/o, ADHD, insomnia and seasonal allergies. Pt is allergic to lyrica. pt is full code. Pt is on a regular diet. Pt is on a 1:1, sitter at bedside for safety. Pt refused to have her IV fluids administered. Pt drank 3000ml PO and had 5 voids. Pt had multiple PRN medications throughout the shift. Dr Hinkle is aware of the effectiveness of the medications. All needs addressed at this time. shift supervisor film processing to administer medication to alleviate the pt's migraine. All other needs addressed at this time.
[2016-06-16] MEDS ORDERED: SUMATRIPTAN SUCCINATE 50 MG TABLET PO ONE (19:30)
--- NOTE | 2016-06-16 19:30 | NUR ---
START OF SHIFT NOTE: Patient is a 35 y/o female admitted on 06/12/16 for Opiates and benzo dependence. Pt has a PMH of fibromylagia, epilepsy, panic d/o, bipolar d/o, dissociative idenity d/o, ADHD, insomnia and seasonal allergies. Patient is on a regular diet with allergies to Lyrica. Full Code status. Pt is on a regular diet. Pt is on a 1:1 sitter at bedside for safety. Pt has IV access on his left leg with running IVF NS at 125ml/hr. No signs of redness at IV site. No c/o pain/discomfort noted on IV site. Patient is on a 5-day Valium & Subutex taper and tolerating well. Last COWS 4 CIWA 4 noted. Patient is alert & oriented x4. No shortness of breath noted. Respiration even & unlabored. Abdomen soft & non-distended. Bowel sounds active in all four quadrants. Slight nausea/vomiting noted. Patient complains of 8/10 body aches. Bilateral hand tremors noted. Patient complains of sweating & chills & 6/10 headache. No hallucinations. Patient denies SI/HI. Safety precautiopns are in place. Bed locked in lowest position. Both side rails up. Call light within pt's reach. Will continue to monitor patient.
[2016-06-16 20:00] VITALS: BP 122/79
[2016-06-16] MEDS: TRAZODONE 100 MG TABLET PO SCH (21:32)
--- NOTE | 2016-06-16 21:32 | NUR ---
PRN Motrin Patient complains of 6/10 headache. PRN Motrin given as ordered. patient not in any distress. No sshortness of breath noted. Safety precautions are in place. Will continue to monitor patient.
--- NOTE | 2016-06-16 22:32 | NUR ---
PRN Reassessment PRN Motrin was effective. Pt verbalized relief from headache. 4/10 noted at this time. Will continue to monitor patient.
[2016-06-17] VITALS: BP 126/78
[2016-06-17] MEDS: KETOROLAC TROMETHAMINE 30 MG INJ IM PRN ×3 (01:57→21:07)
--- NOTE | 2016-06-17 01:57 | NUR ---
PRN Toradol Patient complains of 8/10 body aches. Patient awake and restless. Facial grimacing noted. PRN Toradol given on right buttocks. Will continue to monitor patient.
--- NOTE | 2016-06-17 02:00 | NUR ---
IV pulled out Pt accidentally pulled out IV access on left leg. No bleeding noted. Tried inserting Iv access 1x but was unsuccessful. Pt requested to continue IV fluids in the morning. Charge nurse made aware. Will endorse to day shift nurse.
[2016-06-17] MEDS: diphenhydrAMINE 50 MG CAPSULE PO PRN (02:45)
[2016-06-17] MEDS: HYDROXYZINE PAMOATE 25 MG CAPSULE PO PRN (02:45)
--- NOTE | 2016-06-17 02:45 | NUR ---
PRN Vistaril & Benadryl Patient complains of anxiety & insomnia. PRN Vistaril & Benadryl given as ordered. Will continue to monitor patient.
--- NOTE | 2016-06-17 02:57 | NUR ---
PRN Reassessment Patient verbalized relief from pain. Pain noted 4/10 at this time. no s/s of distress noted. No shortness of breath noted. Safety precautions are in place. Will continue to monitor.
--- NOTE | 2016-06-17 04:00 | NUR ---
Vitals/Cows/Ciwa deferred Patient refused vitals at this time. Patient asleep at this time. No shortness of breath noted. Respiration even & unlabored. Safety precautions are in place. Will continue to monitor.
--- NOTE | 2016-06-17 07:09 | NUR ---
END OF SHIFT NOTE: Patient is a 35 y/o female admitted on 06/12/16 for Opiates and benzo dependence. Pt has a PMH of fibromylagia, epilepsy, panic d/o, bipolar d/o, dissociative idenity d/o, ADHD, insomnia and seasonal allergies. Patient is on a regular diet with allergies to Lyrica. Full Code status. Pt is on a regular diet. Pt is on a 1:1 sitter at bedside for safety. Pt had IV access on her left leg and was accidentally pulled out on my shift. Pt requested to continue IV in AM. Pt with orders for IVF NS at 125ml/hr. Patient is on a 5-day Valium & Subutex taper and tolerating well. Last COWS 5 CIWA 3 noted. Pt was given PRN Motrin, Benadryl, Vistaril & Toradol and all were effective. Pt remained stable and vitals remains WNL. Pt slept for a total of 4 hours. Pt consumed 796 ml of fluids. Voided 5x with no bowel movement. Pt still asleep at this time. No shortness of breath noted. Respiration even & unlabored.All needs attended & met. Safety precautions are in place. Will endorse pt to day shift nurse.
--- NOTE | 2016-06-17 07:30 | NUR ---
START OF SHIFT NOTE: Received report from night warehouse manager nurse. Patient is a 35 y/o female admitted on 06/12/16 for Opiates and benzo dependence. Pt is on a 5 day Valium and 5 day Subutex tapers. Tolerating well. Pt is alert and oriented X4. Color good skin warm and dry. Respirations even and unlabored. Pt on 1:1 due to unsteady gait. Safety precautions observed. Call light within reach.
[2016-06-17 08:00] VITALS: BP 116/74
--- NOTE | 2016-06-17 08:00 | NUR ---
VSS COWS 10 CIWA 11 Pt c/o nausea, sweating, tremors and headache. Pt given Zofran 4mg IM prn LG
[2016-06-17] MEDS: ONDANSETRON 4 MG/2 ML VIAL IV PRN (08:05)
[2016-06-17] MEDS: BUPRENORPHINE HCL 2 MG TAB.SUBL SL SCH ×2 (08:05→20:41)
[2016-06-17] MEDS: DULOXETINE 60 MG CAPSULE.DR PO SCH (08:05)
[2016-06-17] MEDS: BACLOFEN 20 MG TABLET PO SCH ×3 (08:06→20:37)
[2016-06-17] MEDS: GABAPENTIN 300 MG CAPSULE PO SCH ×3 (08:06→20:35)
[2016-06-17] MEDS: CLONIDINE HCL 0.1 MG TABLET PO SCH ×3 (08:06→21:00)
[2016-06-17] MEDS: DIAZEPAM 5 MG TABLET PO SCH ×2 (08:06→20:38)
[2016-06-17] MEDS: DOCUSATE SODIUM 250 MG CAPSULE PO SCH (08:06)
[2016-06-17] MEDS: MULTIVITAMINS,THERAPEUTIC TABLET PO SCH (08:06)
[2016-06-17] MEDS: DIVALPROEX 250 MG TABLET.DR PO SCH ×3 (08:06→15:45)
[2016-06-17] MEDS: DICYCLOMINE HCL 20 MG TABLET PO SCH ×3 (08:06→20:37)
[2016-06-17] MEDS: PATIENT MAY USE OWN MED- MD OK PO SCH ×2 (08:07→15:42)
[2016-06-17] MEDS: NICOTINE 14 MG/24HR PATCH TD SCH (08:11)
[2016-06-17] MEDS: LIDOCAINE 5% PATCH TD SCH (08:11)
--- NOTE | 2016-06-17 08:45 | NUR ---
Pt states nausea improved after Zofran prn IM.
[2016-06-17] MEDS ORDERED: DIAZEPAM 5 MG TABLET PO SCH (09:00)
[2016-06-17] MEDS ORDERED: DIAZEPAM 2 MG TABLET PO SCH ×2 (09:00)
[2016-06-17 12:30] VITALS: BP 120/68
[2016-06-17] MEDS: ACETAMINOPHEN ES 500 MG TABLET PO SCH ×2 (13:00→20:34)
[2016-06-17] MEDS ORDERED: SCOPOLAMINE HYDROBROMIDE 1.5 MG PATCH TD SCH (13:00)
--- NOTE | 2016-06-17 13:00 | NUR ---
VSS Toradol 30mg IM prn given for headache and muscle aches.
[2016-06-17] MEDS: QUETIAPINE FUMARATE 25 MG TABLET PO SCH (13:23)
--- NOTE | 2016-06-17 14:00 | NUR ---
Pt states she feels slightly improved after Toradol prn.
--- NOTE | 2016-06-17 15:00 | NUR ---
Imitrex given po prn for "migraine"
[2016-06-17] MEDS: SUMATRIPTAN SUCCINATE 50 MG TABLET PO PRN (15:42)
--- NOTE | 2016-06-17 16:00 | NUR ---
Pt states "migraine" feels a little better" after Imitrex prn.
--- NOTE | 2016-06-17 17:08 | NUR ---
Client refused to respond to questions about her biological family.
[2016-06-17 18:00] VITALS: BP 124/68
--- NOTE | 2016-06-17 18:39 | NUR ---
END OF SHIFT NOTE: Report given to shift supervisor rn nurse. Patient is a 35 y/o female admitted on 06/12/16 for Opiates and benzo dependence. Pt is on a 5 day Valium and 5 day Subutex tapers. Tolerating well. Pt is alert and oriented X4. Color good skin warm and dry. Respirations even and unlabored. Pt taken off 1:1. IVF dc'd. Pt given Zofran 4mg IM prn LG @ 0800. Also given Toradol 30mg IM prn @ 1300. Also received Imitrex prn @ 1500. Vital signs have remained stable throughout shift. Last COWS 6 CIWA 5 @ 1700. Safety precautions observed. Call light within reach.
--- NOTE | 2016-06-17 19:50 | NUR ---
Start of Shift Note: Report received from day shift nurse. Pt is a 35F, admitted for Benzo and Opiate Dependence on 06/12/16. Pt was in the room upon start of shift. Pt is AOx4 without s/s of acute distress. Pt is full code, regular diet, and on fall/seizure precautions. Pt noted with allergy to pregabalin. Pt reports medical hx of Fibromyalgia, Epilepsy, Panic Disorder, Bipolar Disorder, Dissociative Identity Disorder, ADHD, Insomnia, and seasonal allergies. Pt is currently on a Subutex and Valium taper to manage withdrawal symptoms. Per day shift nurse, pts last COWS was 10 and last CIWA was 11. Pt was noted to have steady gait at start of shift. Pt remains on 1:1 for safety. Bed in lowest position. Side rails up x2. Call light functioning and within reach. All needs attended and met. Will continue to monitor.
[2016-06-17 20:00] VITALS: BP 106/54
[2016-06-17] MEDS: TRAZODONE 100 MG TABLET PO SCH (20:36)
--- NOTE | 2016-06-17 21:07 | NUR ---
PRN Toradol: Pt reported generalized body pain of 10/10. Pt reported unable to relieve pain with non-pharmacological interventions. Pt requested Toradol for pain as it had worked for her earlier. Toradol PRN given as ordered. Will continue to monitor.
--- NOTE | 2016-06-17 22:00 | NUR ---
PRN Toradol Reassessment: Pt reported relief from pain. Pt's current pain level 6/10. PRN Toradol effective.
[2016-06-17] MEDS ORDERED: BENZOCAINE/MENTH/CETYLPYRD LOZENGE MM ONE (22:29)
[2016-06-17] MEDS: BENZOCAINE/MENTH/CETYLPYRD LOZENGE MM PRN (23:44)
--- NOTE | 2016-06-17 23:45 | NUR ---
MD Communication and PRN Cepacol: Pt requested a lozenge for sore throat. MD made aware with new order for Cepacol [id number] for sore throat. All orders noted and carried out. PRN Cepacol given as ordered. Will continue to monitor.
[2016-06-18] VITALS: BP 101/61
--- NOTE | 2016-06-18 | NUR ---
PRN Cepacol Reassessment: Pt noted relief from sore throat. PRN Cepacol effective.
[2016-06-18] MEDS: IBUPROFEN 600 MG TABLET PO PRN (03:06)
--- NOTE | 2016-06-18 03:06 | NUR ---
PRN Motrin: Pt woke up from sleep and reported leg pain /. Pt stated that she usually wakes up at this time with body aches. PRN Motrin given as ordered. Will continue to monitor.
[2016-06-18] MEDS: diphenhydrAMINE 50 MG CAPSULE PO PRN (03:08)
--- NOTE | 2016-06-18 03:08 | NUR ---
PRN Benadryl: Pt c/o inability to sleep. PRN Benadryl given for insomnia. Will continue to monitor.
[2016-06-18 04:00] VITALS: BP 118/78
--- NOTE | 2016-06-18 04:00 | NUR ---
PRN Motrin Reassessment: Pt stated pain was a little better. Pain level 5/10. PRN Motrin effective.
[2016-06-18] MEDS: ACETAMINOPHEN ES 500 MG TABLET PO SCH ×2 (05:59→14:10)
[2016-06-18] MEDS: HYDROXYZINE PAMOATE 25 MG CAPSULE PO PRN ×2 (05:59→11:17)
--- NOTE | 2016-06-18 05:59 | NUR ---
PRN Vistaril: Pt c/o anxiety due to inability to go to sleep. PRN Vistaril given as ordered. Will continue to monitor.
[2016-06-18] MEDS: KETOROLAC TROMETHAMINE 30 MG INJ IM PRN (06:17)
[2016-06-18] MEDS: BENZOCAINE/MENTH/CETYLPYRD LOZENGE MM PRN (06:30)
--- NOTE | 2016-06-18 06:30 | NUR ---
PRN Toradol and PRN Cepacol: Pt reported generalized body pain of 8/10. Toradol PRN given as ordered. Pt c/o sore throat. Cepacol PRN given as ordered. Will continue to monitor.
[2016-06-18] MEDS ORDERED: BENZOCAINE/MENTH/CETYLPYRD LOZENGE MM ONE (06:38)
--- NOTE | 2016-06-18 06:56 | NUR ---
PRN Vistaril Reassessment: Pt stated that her anxiety is better after taking Vistaril. PRN Vistaril effective.
[2016-06-18 08:00] VITALS: BP 130/77
--- NOTE | 2016-06-18 08:00 | NUR ---
START OF SHIFT Pt 35 y/o female admitted for benzo and opiate dependence. Pt received in room on bed with eyes closed resting, but easily arousable to name. Pt alert and oriented to name, place, and time. Perrla. Skin warm and slightly moist to touch. Respirations even and unlabored. Pt observed irritable this morning. It was reported that pt slept for 4 hours last night. Bed on lowest position with side rails x2 up for safety. Call light within reach. No distress noted at this time.
[2016-06-18] MEDS: MULTIVITAMINS,THERAPEUTIC TABLET PO SCH (08:19)
[2016-06-18] MEDS: GABAPENTIN 300 MG CAPSULE PO SCH ×2 (08:20→15:39)
[2016-06-18] MEDS: BACLOFEN 20 MG TABLET PO SCH ×2 (08:20→15:39)
[2016-06-18] MEDS: DULOXETINE 60 MG CAPSULE.DR PO SCH (08:20)
[2016-06-18] MEDS: DOCUSATE SODIUM 250 MG CAPSULE PO SCH (08:20)
[2016-06-18] MEDS: DICYCLOMINE HCL 20 MG TABLET PO SCH ×2 (08:20→15:39)
[2016-06-18] MEDS: CLONIDINE HCL 0.1 MG TABLET PO SCH ×2 (08:20→15:39)
[2016-06-18] MEDS: QUETIAPINE FUMARATE 25 MG TABLET PO SCH (08:20)
[2016-06-18] MEDS: DIVALPROEX 250 MG TABLET.DR PO SCH ×2 (08:21→14:10)
[2016-06-18] MEDS: LIDOCAINE 5% PATCH TD SCH (08:21)
[2016-06-18] MEDS ORDERED: BUPRENORPHINE HCL 2 MG TAB.SUBL SL SCH (09:00)
[2016-06-18] MEDS ORDERED: DIAZEPAM 2 MG TABLET PO SCH (09:00)
[2016-06-18] MEDS: NICOTINE 14 MG/24HR PATCH TD SCH (09:00)
[2016-06-18] MEDS ORDERED: QUETIAPINE FUMARATE 200 MG TABLET PO ONE (10:30)
[2016-06-18] MEDS ORDERED: chlorproMAZINE 50 MG/2 ML AMPUL IM ONE ×2 (10:30→10:45)
--- NOTE | 2016-06-18 10:46 | NUR ---
PRN Pt observed at nursing station agitated, yelling at staff. Pt hard to redirect and very intrusive. Dr. Patel came on unit and spoke with pt after much redirection. thorazine im 50mg ordered, noted, and carried out.
[2016-06-18] MEDS ORDERED: KETOROLAC TROMETHAMINE 30 MG INJ IM ONE (11:30)
--- NOTE | 2016-06-18 11:30 | NUR ---
NSG ENTRY Pt stated, she wants wants to go a psych unit and wants to be evaluated for a hold. Pt still very irritable. Dr. Patel still on unit with new order for 5150 eval.
[2016-06-18 12:00] VITALS: BP 132/71
--- NOTE | 2016-06-18 12:30 | NUR ---
5150 GENNY Sutherland , 5150 enterprise records analyst, came to evaluate pt and put pt on 5150 for GD- 'pt with c/o not being able to sleep. Pt finally was calmed with thorazine IM injection. Pt denies being violent to others, but agreed that she is verbally aggressive at times when she feels she is being treated rudely. "
--- NOTE | 2016-06-18 13:59 | NUR ---
NSG ENTRY Pt constantly leaving room. Pt not available to give medications that are due at 1300.
[2016-06-18] MEDS: SUMATRIPTAN SUCCINATE 50 MG TABLET PO PRN (14:10)
[2016-06-18 15:39] VITALS: BP 132/72
--- NOTE | 2016-06-18 16:02 | NUR ---
REPORT NUrse to nurse report [facility], with instructions to go to ER and room # [id number]. Spoked with Chris to arrange for transportation and with picklucy REAGAN at 1730.
[2016-06-18] MEDS: FLEET ENEMA 133 ML BOTTLE RC PRN (17:14)
--- NOTE | 2016-06-18 18:01 | NUR ---
TRANSFER NOTE: PT WAS TRANSFERRED TO [facility] UNDER THE ORDERS OF AND SILVERIO FROM CRISIS TEAM. PT LEFT THE UNIT WITH ALL PERSONAL BELONGINGS AND ACCOMPANIED BY 2 TRANSPORTERS VIA RDE PERE. PT'S V/S WNL.
== END 2016-06-18 18:01 | DRG 895 ==
LOC: SRC 06-12 13:38
PROVIDERS: ADMIT Internal Medicine; ATTEND Internal Medicine
PROC: HZ2ZZZZ Detoxification Services for Substance Abuse Treatment (ICD-10-PCS; principal; 2016-06-12)
PROC: HZ31ZZZ Individual Counseling for Substance Abuse Treatment, Behavioral (ICD-10-PCS; 2016-06-15)
DX: F11.23 Opioid dependence with withdrawal (principal); G40.919 Epilepsy, unspecified, intractable, without status epilepticus; F31.32 Bipolar disorder, current episode depressed, moderate; F13.239 Sedative, hypnotic or anxiolytic dependence with withdrawal, unspecified; T14.90 Injury, unspecified; F43.10 Post-traumatic stress disorder, unspecified; Y09 Assault by unspecified means; M79.7 Fibromyalgia; Z87.19 Personal history of other diseases of the digestive system; Z65.3 Problems related to other legal circumstances; Z79.899 Other long term (current) drug therapy; Z91.19 Patient's noncompliance with other medical treatment and regimen; F10.21 Alcohol dependence, in remission; R26.81 Unsteadiness on feet; F40.01 Agoraphobia with panic disorder; J30.2 Other seasonal allergic rhinitis; G89.29 Other chronic pain; F51.5 Nightmare disorder; G47.00 Insomnia, unspecified; F90.9 Attention-deficit hyperactivity disorder, unspecified type; F41.1 Generalized anxiety disorder
CPT/HCPCS: 36415; 80307; 80346; 80361; 83735; 84443; 84703; 85025; 86580; 86592; 86705; 86803; 87340; 87806; A4663; G6040-TC; J1885; J2405; J2550; J3230; J3490; J7030; J7040; Q0162; Q0163